=== PATIENT | female | born 2000 | race Caucasian/White ===

== ENCOUNTER → 2019-03-09 | Outpatient (CLI) | payer OTHER ==
--- NOTE | 2019-03-09 16:53 | Diagnostic Imaging Report ---
INDICATION: Lower abdominal pain. CT of the abdomen and pelvis obtained with IV contrast bolus. There is no prior study for comparison. FINDINGS: The visualized portions of the lung bases are clear. There are no pleural fluid collections. There is no free intraperitoneal air. A WARDROBE ASSISTANT shunt catheter is seen entering the peritoneal cavity in the epigastric region with its catheter tip in the posterior pelvis. The liver and gallbladder appear normal. Spleen, adrenals, and pancreas appear normal. The kidneys bilaterally are unremarkable. There is no retroperitoneal hematoma or mass. There is no ascites or abnormal fluid collection. There is moderate stool throughout the colon. There is no adnexal mass. There is no overt periappendiceal abnormality. IMPRESSION: WARDROBE ASSISTANT shunt in place. No acute abnormality in the abdomen or pelvis. Dictated by: Dictated on workstation # [id number]
== END ==
LOC: RAD 15:16
PROVIDERS: ATTEND Surgery
DX: R10.33 Periumbilical pain (principal); Z98.2 Presence of cerebrospinal fluid drainage device
CPT/HCPCS: 74177

== ENCOUNTER 2021-02-18 18:25 | Emergency (ER) | payer OTHER ==
[~2021-02-18] VITALS: Ht 160 cm; Wt 85.0 kg
--- NOTE | 2021-02-18 19:29 | ED General ---
General Chief Complaint: Cough/Cold/Flu Symptoms Stated Complaint: SWOLLEN FACE, CONGESTION, COUGH Nursing Triage Note: Pt ambulatory into ER with complaint of Cough, Congestion, Headache x2 days. Facial swelling for unknown time. Pt was seen at [facility] and was sent to hospital for outpatient CT. Pt didn't receive results so her parents encouraged her to come to ER. Pt had a covid test earlier this week, but hasn't gotten results back. History of Present Illness Date Seen by Provider: Feb 18, 2021 Time Seen by Provider: 19:00 Initial Comments 20-year-old female presents for cough and congestion that is been present for 2 days with swelling to the right temporal region. She was evaluated at [facility] earlier today and referred for CT scan. She attempted to contact the hospital to get her CT results and was unable to so presented to the emergency department. She has taken some Delsym and Sudafed, but none in the last 8 hours. No tylenol or ibuprofen. She denies headache at this time. She has a previous history of hydrocephalus with shunt. Timing/Duration: 2-3 Days Severity: Mild Associated Systoms: Cough; No Fever/Chills; Headaches, Malaise; No Nausea/Vomiting, No Rash, No Seizure, No Shortness of Air, No Syncope, No Weakness Allergies and Home Medications Allergies Coded Allergies: No Known Drug Allergies (Unverified , 02/18/21) Patient Home Medication List Home Medication List Reviewed: Yes Review of Systems Review of Systems Constitutional: no symptoms reported, see HPI Respiratory: see HPI, cough; No dyspnea on exertion, No short of breath Cardiovascular: no symptoms reported, see HPI Gastrointestinal: no symptoms reported, see HPI Skin: no symptoms reported, see HPI Psychiatric/Neurological: See HPI, Headache All Other Systems Reviewed Negative Unless Noted: Yes Past Qmmhvnx-Kycfcu-Wyrocr Hx Patient Social History Tobacco Use?: No Use of E-Cig and/or Vaping dev: No Substance use?: No Alcohol Use?: Yes Alcohol type: Beer, Wine Alcohol Frequency: Rarely Immunizations Up To Date Influenza Vaccine Up-to-Date: No; Not Current Second COVID19 Vaccination Gwyn: 09/27/20 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 oz. kg; 33.00 BMI Method: General Appearance: No Apparent Distress, WD/WN Eyes: Bilateral Eye Normal Inspection, Bilateral Eye PERRL, Bilateral Eye EOMI HEENT: PERRL/EOMI, TMs Normal, Normal ENT Inspection, Pharynx Normal, Other (Trace swelling in the right temporal region, no erythema or ecchymosis. No folliculitis or other skin changes to the scalp) Neck: Full Range of Motion, Normal Inspection, Non Tender; No Lymphadenopathy (L), No Lymphadenopathy (R) Respiratory: Chest Non Tender, Lungs Clear, Normal Breath Sounds Cardiovascular: Regular Rate, Rhythm, No Edema, No JVD, No Murmur, Normal Peripheral Pulses Gastrointestinal: Normal Bowel Sounds, Non Tender, Soft Extremity: Normal Capillary Refill, Normal Inspection, Normal Range of Motion, Non Tender, No Calf Tenderness, No Pedal Edema Neurologic/Psychiatric: Alert, Oriented x3, No Motor/Sensory Deficits, Normal Mood/Affect Skin: Normal Color, Warm/Dry Progress/Results/Core Measures Suspected Sepsis SIRS Temperature: Pulse: 115 Respiratory Rate: 20 Blood Pressure 120 /96 Mean: 104 Results/Orders Lab Results Laboratory Tests Test 02/18/21 18:38 Range/Units Influenza Type A (RT-PCR) Not Detected Not Detecte Influenza Type B (RT-PCR) Not Detected Not Detecte SARS-CoV-2 RNA (RT-PCR) Not Detected Not Detecte My Orders Orders - TODD ORTIZ Covid 19 Inhouse Test (02/18/21 18:34) Influenza A And B By Pcr (02/18/21 18:34) Vital Signs/I&O 02/18/21 02/18/21 02/18/21 18:54 18:54 19:49 Temp 36.7 Pulse 115 100 Resp 20 20 B/P (MAP) 120/96 (104) 111/78 Pulse Ox 98 98 O2 Delivery Room Air Room Air Room Air Capillary Refill : Less Than 3 Seconds Blood Pressure Mean: 104 Progress Note : Time: 19:00 Progress Note Patient seen and evaluated, she has pending Covid test but no results. We will do a PCR at this time as we have rapid testing available. Reviewed the CT results with the patient and her father via her phone. Reassured them that the CTs are both normal with no acute abnormalities noted. Discussed the patient with Dr. Perry, no further treatment or testing recommended. 1930 COVID and Influenza testing negative. Discussed with patient. She will get dosx-vfv-jasbyhn cough and cold medicines as well as ibuprofen and Tylenol to take for symptoms. She will follow-up with [facility] as need ed. Discharge instructions and return precautions reviewed with her. Departure Impression Primary Impression: Right facial swelling Disposition: HOME, SELF-CARE Condition: Improved Departure-Patient Inst. Decision time for Depature: 19:20 Referrals: [facility] (PCP/Family) Primary Care Physician Patient Instructions: Cough, Runny Nose, and the Common Cold (DC) Add. Discharge Instructions: Alternate between Tylenol 650 mg and ibuprofen 600 mg every 4 hours for pain or generally not feeling good. Take Sudafed 30 mg every 6 hours for congestion. You may use Delsym as needed for coughing. You may take Benadryl 25 mg before bedtime. Follow-up with [facility] with Dr. Loco tomorrow if symptoms are not improving or worsen. Return to the emergency department for new, urgent healthcare needs. All discharge instructions reviewed with patient and/or family. Voiced understanding. Copy Copies To 1: BERLIN PERRY MD, AMY ARNP Feb 18, 2021 19:29
[2021-02-18 19:49] VITALS: BP 111/78
--- OUTSIDE RECORDS SUMMARY | 2021-02-19 02:16 | XMS REPORT | Clinical Summary ---
Author Author [facility] Organization [facility] Address Unknown Phone Unavailable Care Team Providers Care Bilingual Spanish Inbound Sales Name Role Phone Pillo Horvath MD PCP Allergies No Known Active Allergies Medications End Date Status Medication Sig Dispensed Refills Start Date Active MIBELAS 24 FE 1 mg-20 0 mcg(24) /75 mg (4) Chew 7 tablet Active dicyclomine (BENTYL) 20 Take 1 tablet 10 tablet 0 11/26/201 mg tablet (20 mg total) 7 by mouth every 6 (six) hours. Active Problems Not on file Social History Date Tobacco Use Types Packs/Day Years Used Never Smoker Comments Alcohol Use Standard Drinks/Week No 0 (1 standard drink = 0.6 o z pure alcohol) Sex Assigned at Date Recorded Not on file Last Filed Vital Signs Reading Time Taken Comments Vital Sign 110/65 11/26/2016 7:39 PM CDT Blood Pressure 75 11/26/2016 7:39 PM CDT Pulse 36.8 C (98.2 F) 11/26/2016 7:33 PM CDT Temperature 16 11/26/2016 7:39 PM CDT Respiratory Rate 98% 11/26/2016 7:39 PM CDT Oxygen Saturation - - Inhaled Oxygen Concentration 74.5 kg (164 lb 3.9 oz) 11/26/2016 5:01 PM CDT Weight 162.6 cm (5' 4") 11/26/2016 5:01 PM CDT Height 28.19 11/26/2016 5:01 PM CDT Body Mass Index Plan of Treatment Health Maintenance Due Date Last Done Comments Td/Tdap# 1999 HPV Vaccine (1 - 2-dose 2010 series) Cervical Cancer Screening 2020 via Pap Smear Influenza Vaccine (#1) 2021 MCV4 Vaccine Aged Out No longer eligible based on patient's age to complete this topic Pneumococcal Vaccine: Aged Out No longer eligib gary based on patient's age to Pediatrics (0 to 5 Years) complete this topic and At-Risk Patients (6 to 64 Years) Results Not on filefrom Last 3 Months Insurance Type Payer Benefit Subscriber ID Effective Phone Address Plan / Dates Group NICOLE RIVERA [id number] 2010-P NATIONAL resent [phone] Personal/F Mother 04/16/1971 [id number] am[place] (Home) [place], [place] [address] Krystal Gracia Personal/F Mother 04/16/1971 [id number] amily (Home) [place], [place] [address] Advance Directives For more information, please contact: [phone] 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
== END 2021-02-18 19:46 | disposition home or self-care (01) ==
LOC: EDUNIT# 18:25 → ER 18:28
DX: R22.0 Localized swelling, mass and lump, head (principal); Z20.822 Contact with and (suspected) exposure to COVID-19
CPT/HCPCS: 87636; 99282

== ENCOUNTER → 2021-02-18 | Outpatient (CLI) | payer OTHER ==
[~2021-02-18] MED LIST: HOLD METFORMIN - RECEIVED CONTRAST 20 ML VIAL IV SCH; IOHEXOL 350 MG/ML 100 ML (OMNIPAQUE 350) VIAL IV ONE; NS 100 ML (IVPB) BAG IV ONE
--- NOTE | 2021-02-18 16:57 | Diagnostic Imaging Report ---
PROCEDURE: CT head with and without contrast. TECHNIQUE: Multiple contiguous axial images were obtained through the brain before and after the administration of intravenous contrast. Auto Exposure Controls were utilized during the CT exam to meet ALARA standards for radiation dose reduction. INDICATION: Headache with right-sided facial swelling. COMPARISON: CT face performed without and with contrast. FINDINGS: Pre contrast imaging shows no intracranial hyperdense hemorrhage or space-occupying mass. No hydrocephalus or midline shift is present. There is an old abandoned STATE TROOPER shunt catheter in the left scalp with its access port still in place. However, there is no intracranial component of the catheter present. Basilar cisterns are widely patent. On post contrast imaging, there is no pathologic intracranial enhancement seen. No acute calvarial abnormality. Paranasal sinuses and mastoid air cells are clear. IMPRESSION: 1. No acute intracranial process on noncontrast imaging. 2. No intracranial pathologic enhancement by CT. Dictated by: Dictated on workstation # [id number]
--- NOTE | 2021-02-18 17:01 | Diagnostic Imaging Report ---
PROCEDURE: CT maxillofacial with and without contrast. TECHNIQUE: CT imaging of the maxillofacial structures before and after the administration of intravenous contrast with reformatted images. Auto Exposure Controls were utilized during the CT exam to meet ALARA standards for radiation dose reduction. INDICATION: Right-sided facial swelling. COMPARISON: CT head performed concurrently. FINDINGS: Nasal cavity: There is asymmetric mucosal thickening in the right hemiaspect of the nasal cavity, which is most likely physiologic. Mild rightward deviation of the osseous nasal septum. No fracture of the septum. Mid face: No fracture of the nasal bones. Anterior nasal spine is intact. No orbital fracture. No fracture in the zygomatic arch or maxillary sinus massey. Pterygoid plates are intact. Mandible: Temporomandibular joints are normal in alignment. No fracture in the mandible. No periodontal disease is appreciated. Orbits: Globes are symmetric without rupture. No postseptal inflammatory change. Soft tissues: There is no subcutaneous stranding within the face. There are a few borderline enlarged level II cervical lymph nodes that are likely reactive in nature. No abscess within the visualized soft tissues. Adenoids are mildly enlarged, likely reactive in nature. No peritonsillar abscess. IMPRESSION: 1. No features of peritonsillar or facial abscess. 2. Enlarged adenoids are likely reactive in nature. Additionally, there is likely reactive lymphadenopathy in the upper neck. 3. No fracture of the mid face or mandible. Dictated by: Dictated on workstation # [id number]
== END ==
LOC: RAD 15:00
PROVIDERS: ATTEND Internal Medicine
DX: R22.0 Localized swelling, mass and lump, head (principal); R51.9 Headache, unspecified
CPT/HCPCS: 70470; 70488